=== PATIENT | male | born 1955 | race African-American/Black ===

== ENCOUNTER 2020-12-28 17:43 | Inpatient (IN) ==
[2020-12-28] MEDS ORDERED: hydrALAZINE 20 MG/1 ML VIAL IV STA (18:34)
[2020-12-28] MEDS ORDERED: LABETALOL 20 MG/4 ML SYRINGE IV STA (19:25)
[2020-12-28] MEDS ORDERED: LIDOCAINE 2% TOP JELLY 5 ML TUBE TOP ONE (19:27)
[2020-12-28] MEDS ORDERED: ONDANSETRON 4 MG/2 ML VIAL IV PRN (19:31)
[2020-12-28] MEDS ORDERED: HYDROmorphone 2 MG/1 ML VIAL IV PRN (19:31)
[2020-12-28] MEDS ORDERED: ACETAMINOPHEN 325 MG TABLET PO PRN (19:31)
[2020-12-28] MEDS: metroNIDAZOLE INJ 500 MG/100 ML PREMIX IV SCH (20:04)
[2020-12-28 20:39] LABS: Basophils % 0.3 % (0.0-0.8); Eosinophils % 0.2 % (0.00-10.9); Hemoglobin 14.7 GM/DL (14.0-18.0); Immature Granulocytes % 0.2 %; Immature Granulocytes Absolute 0.01 #; Lymphocytes % 16.3 % (21.2-54.2); Mean Corpuscular HGB Conc 33.4 GM/DL (32-36); Mean Corpuscular Volume 79.1 FL (87-102); Mean Platelet Volume 9.9 FL (9.6-12.0); Monocytes % 10.4 % (1.7-12.7); Neutrophils % 72.6 % (38.7-73.9); Platelet Count 379 T/CUMM (130-400); Red Blood Count 5.56 MC/CUMM (3.8-5.5); Red Cell Distribution Width 15.1 % (9.3-17.3); White Blood Count 5.8 T/CUMM (4-12)
[2020-12-28 21:00] LABS: Calcium 8.6 MG/DL (8.5-10.1); Osmolality,Calculated 274.7 MOS/KG (273-304)
[2020-12-28 21:06] LABS: Potassium 2.4 MMOL/L (3.5-5.1)
[2020-12-28] MEDS: POTASSIUM CHLORIDE RIDER 10 MEQ/100 ML PREMIX IV SCH ×2 (22:10→23:17)
[2020-12-28] MEDS: DEXTROSE 5% LACTATED RINGERS 1,000 ML IV SCH (22:10)
[2020-12-29] MEDS: POTASSIUM CHLORIDE RIDER 10 MEQ/100 ML PREMIX IV SCH ×10 (00:38→18:44)
[2020-12-29 04:45] LABS: Basophils % 0.2 % (0.0-0.8); Eosinophils % 0.2 % (0.00-10.9); Hemoglobin 13.9 GM/DL (14.0-18.0); Immature Granulocytes % 0.4 %; Immature Granulocytes Absolute 0.02 #; Lymphocytes # 1.1 10*3/uL (1.4-4.0); Lymphocytes % 19.3 % (21.2-54.2); Mean Corpuscular HGB Conc 33.1 GM/DL (32-36); Mean Corpuscular Volume 79.8 FL (87-102); Mean Platelet Volume 10.2 FL (9.6-12.0); Monocytes % 12.7 % (1.7-12.7); Neutrophils % 67.2 % (38.7-73.9); Platelet Count 352 T/CUMM (130-400); Red Blood Count 5.26 MC/CUMM (3.8-5.5); Red Cell Distribution Width 15.1 % (9.3-17.3); White Blood Count 5.6 T/CUMM (4-12)
[2020-12-29] MEDS: LABETALOL 20 MG/4 ML SYRINGE IV PRN (04:51)
[2020-12-29] MEDS: metroNIDAZOLE INJ 500 MG/100 ML PREMIX IV SCH ×3 (04:57→23:23)
[2020-12-29 05:05] LABS: Calcium 8.1 MG/DL (8.5-10.1); Osmolality,Calculated 279.4 MOS/KG (273-304); Potassium 2.7 MMOL/L (3.5-5.1)
[2020-12-29] MEDS: DEXTROSE 5% LACTATED RINGERS 1,000 ML IV SCH ×3 (07:40→21:32)
[2020-12-29] MEDS ORDERED: amLODIPine 2.5 MG TABLET PO SCH (09:00)
[2020-12-29] MEDS: PANTOPRAZOLE 40 MG VIAL IV SCH (09:57)
[2020-12-29] MEDS: amLODIPine 5 MG TABLET PO SCH (09:57)
[2020-12-29 11:17] LABS: INR 1.1; PT Patient Result 11.8 SECS (10.5-12.0)
[2020-12-29] MEDS ORDERED: SODIUM PHOSPHATE ENEMA 133 ML BOTTLE RECTAL ONE (12:00)
[2020-12-29] MEDS: LACTATED RINGERS 1,000 ML IV SCH (13:17)
[2020-12-29] MEDS ORDERED: propofoL 200 MG/20 ML VIAL IV ONE (13:29)
[2020-12-29] MEDS ORDERED: LIDOCAINE 2% 5 ML VIAL ONE (13:29)
[2020-12-30 05:37] LABS: Basophils % 0.5 % (0.0-0.8); Eosinophils # 0.1 10*3/uL (0.0-0.87); Eosinophils % 1.4 % (0.00-10.9); Hematocrit 38.5 VOL% (42.0-52.0); Hemoglobin 12.7 GM/DL (14.0-18.0); Immature Granulocytes % 0.5 %; Immature Granulocytes Absolute 0.02 #; Lymphocytes # 1.1 10*3/uL (1.4-4.0); Lymphocytes % 24.1 % (21.2-54.2); Mean Corpuscular Volume 80.5 FL (87-102); Mean Platelet Volume 10.3 FL (9.6-12.0); Monocytes % 14.5 % (1.7-12.7); Platelet Count 297 T/CUMM (130-400); Red Blood Count 4.78 MC/CUMM (3.8-5.5); Red Cell Distribution Width 15.1 % (9.3-17.3); White Blood Count 4.4 T/CUMM (4-12)
[2020-12-30 06:12] LABS: Calcium 7.7 MG/DL (8.5-10.1); Osmolality,Calculated 278.3 MOS/KG (273-304)
[2020-12-30 06:14] LABS: Potassium 2.3 MMOL/L (3.5-5.1)
[2020-12-30] MEDS ORDERED: MAGNESIUM SULF RIDER 2 GM/50 ML PREMIX IV ONE (06:40)
[2020-12-30] MEDS: DEXTROSE 5% LACTATED RINGERS 1,000 ML IV SCH ×3 (06:54→23:43)
[2020-12-30] MEDS: metroNIDAZOLE INJ 500 MG/100 ML PREMIX IV SCH ×3 (09:11→23:45)
[2020-12-30] MEDS: PANTOPRAZOLE 40 MG VIAL IV SCH (09:11)
[2020-12-30] MEDS: POTASSIUM CHLORIDE RIDER 10 MEQ/100 ML PREMIX IV SCH ×6 (09:12→14:52)
[2020-12-30] MEDS: amLODIPine 5 MG TABLET PO SCH (09:12)
[2020-12-30] MEDS: LACTATED RINGERS 1,000 ML IV SCH (12:09)
[2020-12-30] MEDS: LABETALOL 20 MG/4 ML SYRINGE IV PRN (12:59)
[2020-12-30] MEDS ORDERED: POLYETHYLENE GLYCOL POWDER 255 GM BOTTLE PO ONE (18:00)
[2020-12-31] MEDS ORDERED: POLYETHYLENE GLYCOL POWDER 255 GM BOTTLE PO ONE (05:00)
[2020-12-31 06:26] LABS: INR 1.1; PT Patient Result 12.4 SECS (10.5-12.0)
[2020-12-31 06:32] LABS: Calcium 7.7 MG/DL (8.5-10.1); Osmolality,Calculated 278.3 MOS/KG (273-304); Potassium 2.7 MMOL/L (3.5-5.1)
[2020-12-31] MEDS ORDERED: LACTATED RINGERS 1,000 ML IV SCH (08:00)
[2020-12-31] MEDS: POTASSIUM CHLORIDE RIDER 10 MEQ/100 ML PREMIX IV PRN ×4 (08:13→14:28)
[2020-12-31] MEDS: PANTOPRAZOLE 40 MG VIAL IV SCH (08:24)
[2020-12-31] MEDS: DEXTROSE 5% LACTATED RINGERS 1,000 ML IV SCH ×2 (09:22→22:11)
[2020-12-31] MEDS: amLODIPine 5 MG TABLET PO SCH ×2 (09:27→14:28)
[2020-12-31] MEDS: LACTATED RINGERS 1,000 ML IV SCH (11:57)
[2020-12-31] MEDS ORDERED: GLYCOPYRROLATE 0.4 MG/2 ML VIAL ONE (12:02)
[2020-12-31] MEDS: metroNIDAZOLE INJ 500 MG/100 ML PREMIX IV SCH ×3 (12:03→22:18)
[2020-12-31] MEDS ORDERED: propofoL 200 MG/20 ML VIAL IV ONE ×2 (12:52→13:08)
[2020-12-31] MEDS ORDERED: PHENYLEPHRINE 1 MG/10 ML SYRINGE IV ONE (13:17)
[2021-01-01] MEDS: POTASSIUM CHLORIDE RIDER 10 MEQ/100 ML PREMIX IV PRN ×4 (00:30→04:25)
[2021-01-01] MEDS: DEXTROSE 5% LACTATED RINGERS 1,000 ML IV SCH (04:24)
[2021-01-01] MEDS: metroNIDAZOLE INJ 500 MG/100 ML PREMIX IV SCH (05:44)
[2021-01-01] MEDS: amLODIPine 5 MG TABLET PO SCH (08:58)
[2021-01-01] MEDS: PANTOPRAZOLE 40 MG VIAL IV SCH (09:02)
[2021-01-01 11:33] VITALS: BP 152/99
== END 2021-01-01 13:45 | disposition home or self-care (01) | DRG 390 ==
LOC: N.ED 17:43 → N.EDINP 19:31 → N.3E 20:07
PROVIDERS: ADMIT Student in an Organized Health Care Education/Training Program; ATTEND Student in an Organized Health Care Education/Training Program